=== PATIENT | male | born 1995 | race Two or more races ===

== ENCOUNTER 2018-04-25 19:22 | Emergency (ER) | payer OTHER ==
[~2018-04-25] VITALS: Ht 172.7 cm; Wt 122.5 kg
== END 2018-04-25 22:01 | disposition home or self-care (01) ==
LOC: ER 19:22
DX: J11.1 Influenza due to unidentified influenza virus with other respiratory manifestations (principal)

== ENCOUNTER 2018-08-23 22:00 | Emergency (ER) | payer OTHER ==
[~2018-08-23] VITALS: Ht 172.7 cm; Wt 127.0 kg
[2018-08-24] MEDS ORDERED: ZYNCOF 20-400120 ML PO (03:01)
[2018-08-24] MEDS ORDERED: ALBUTEROL2.5 MG/3 M IH (03:01)
[2018-08-24] MEDS ORDERED: SINGULAIR 10MG10 MG PO (03:01)
== END 2018-08-24 03:08 | disposition home or self-care (01) ==
LOC: ER 22:00
DX: J45.998 Other asthma (principal); R06.02 Shortness of breath

== ENCOUNTER 2018-12-17 00:02 | Emergency (ER) | payer OTHER ==
[~2018-12-17] VITALS: Ht 172.7 cm; Wt 113.4 kg
[~2018-12-17 00:02] MED LIST: ALBUTEROL2.5 MG/3 M IH; SINGULAIR 10MG10 MG PO; ZYNCOF 20-400120 ML PO
[2018-12-17] MEDS ORDERED: PEPCID20 MG PO (04:49)
[2018-12-17] MEDS ORDERED: INTESTINEX680 M1 PO (04:49)
== END 2018-12-17 04:54 ==
LOC: ER 00:02
DX: K52.89 Other specified noninfective gastroenteritis and colitis (principal); R11.11 Vomiting without nausea; R19.7 Diarrhea, unspecified